=== PATIENT | male | born 1955 | race Caucasian/White ===

== ENCOUNTER 2019-05-11 21:46 | Inpatient (IN) | payer OTHER ==
[~2019-05-11] VITALS: Ht 177.8 cm; Wt 77.2 kg
--- NOTE | ~2019-05-11 | EKG ---
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
[2019-05-11 21:57] VITALS: BP 109/86
[2019-05-11 22:38] LABS: BASOPHILS 1.3 % (0.0-2.0); EOSINOPHILS 3.3 % (0.0-3.0); HEMATOCRIT 47.8 % (42.0-52.0); HEMOGLOBIN 16.3 gm/dL (14.0-18.0); LYMPHOCYTES 38.9 % (24.0-44.0); MCHC 34.1 g/dL (28.0-37.0); MCV 99.6 fL (80.0-100.0); MONOCYTES 6.8 % (1.0-8.0); PLATELET COUNT 254 thou/uL (150-400); POLYS 49.7 % (36.0-66.0); RDW 13.6 % (10.5-14.5); WBC 6.1 thou/uL (4.0-11.0)
[2019-05-11 22:49] LABS: ANION GAP 13 mmol/L (7-16); BUN 18 mg/dL (7-18); CALCIUM 8.9 mg/dL (8.5-10.1); CHLORIDE 100 mmol/L (98-107); CO2 24 mmol/L (21-32); CREATININE 0.9 mg/dL (0.7-1.3); GLUCOSE 97 mg/dL (74-106); POTASSIUM 3.3 mmol/L (3.5-5.1); SODIUM 137 mmol/L (136-145)
[2019-05-11 23:00] LABS: ALBUMIN 3.4 g/dL (3.4-5.0); SALICYLATE 5.5 mg/dL (2.8-20.0); SGOT 24 U/L (15-37); SGPT 19 U/L (30-65); TOTAL BILIRUBIN 0.2 mg/dL (<0.1-1.0); TOTAL PROTEIN 7.2 g/dL (6.4-8.2); TROPONIN-I <0.06 ng/mL (<0.06)
[2019-05-11 23:50] LABS: URINE BILIRUBIN NEGATIVE (Negative); URINE BLOOD TRACE (Negative); URINE CLARITY CLEAR; URINE COLOR YELLOW; URINE GLUCOSE-RANDOM* NEGATIVE (Negative); URINE KETONES NEGATIVE (Negative); URINE LEUKOCYTES-REFLEX NEGATIVE (Negative); URINE NITRITE-REFLEX NEGATIVE (Negative); URINE PROTEIN (DIPSTICK) NEGATIVE (Negative); URINE SPECIFIC GRAVITY 1.015 (1.005-1.035); URINE UROBILINOGEN 0.2 E.U./dl (0.2-1.0)
[2019-05-11 23:59] LABS: AMP/METHAMP Negative (Negative); BARBITURATES Negative (Negative); BENZODIAZEPINES Negative (Negative); COCAINE Negative (Negative); METHADONE Negative (Negative); OPIATES Negative (Negative); PCP Negative (Negative)
[2019-05-12] VITALS (24 sets, daily range): BP systolic 96–126; BP diastolic 63–83
--- NOTE | 2019-05-12 01:30 | NUR ---
Pt arrived ICU around 0100. He is being admit for Traumatic Subarrachnoid Hemorrhage ,Alcohol intoxication and Depression. He is AAOx4, GCS 15. He is wearing soft collar , C-spine injury precaution inplace per . Hx obtained, admition assessment completed. Continue working toward goals.
[2019-05-12 05:42] LABS: CREATININE 0.8 mg/dL (0.7-1.3); POTASSIUM 3.8 mmol/L (3.5-5.1)
[2019-05-12 05:58] LABS: CHOLESTEROL 211 mg/dL (<200); HDL CHOLESTEROL 44 mg/dL (>40); LDL CHOLESTEROL 108 mg/dL (<100); MAGNESIUM 1.7 mg/dL (1.8-2.4); PHOSPHORUS 3.6 mg/dL (2.5-4.9); TC:HDL 4.8 Ratio (Not establshd); TRIGLYCERIDE 296 mg/dL (<150); VLDL 59 mg/dL (<40)
[2019-05-12 05:59] LABS: SERUM ASSESSMENT Clear
--- NOTE | 2019-05-12 07:00 | NUR ---
No changes of neurological this am.
--- NOTE | 2019-05-12 12:13 | EKG ---
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
--- NOTE | 2019-05-12 13:28 | NUR ---
Dr. Penn called RN and stated she is not seeing consults this weekend but can see any new consults beginning Tuesday. Nurse verbalized understanding. Will continue to monitor.
--- NOTE | 2019-05-12 13:50 | NUR ---
Discharge instructions gone over with PT at bedside. He verbalized understanding. Education packet was given to PT including information on smoking cessation. PT was made aware of follow up appointments with his primary care provider and Dr. Penn. PT's roommate is going to be transport home. PT will leave unit via wheelchair. Nurse will continue to monitor.
--- NOTE | 2019-05-12 14:17 | NUR ---
PT was taken out to main entrance with RN via wheelchair. Roommate was present for transport home. PT dc'd at 1410.
[2019-05-13 02:06] LABS: GLYCOHEMOGLOBIN (HGB A1C) 5.6 % (4.8-5.6)
== END 2019-05-12 14:10 | disposition home or self-care (01) | DRG 84 ==
LOC: ER 21:46 → EROBS 05-12 00:36 → ICU 05-12 01:10
PROVIDERS: Nurse Practitioner Family; Physician Assistant; ADMIT Hospitalist
DX: S06.6X9A Traumatic subarachnoid hemorrhage with loss of consciousness of unspecified duration, initial encounter (principal); W18.39XA Other fall on same level, initial encounter; J44.9 Chronic obstructive pulmonary disease, unspecified; M19.90 Unspecified osteoarthritis, unspecified site; I25.10 Atherosclerotic heart disease of native coronary artery without angina pectoris; E78.5 Hyperlipidemia, unspecified; F17.210 Nicotine dependence, cigarettes, uncomplicated; M19.042 Primary osteoarthritis, left hand; M19.041 Primary osteoarthritis, right hand; M17.11 Unilateral primary osteoarthritis, right knee; F10.129 Alcohol abuse with intoxication, unspecified; Z71.6 Tobacco abuse counseling; Y93.89 Activity, other specified; Y92.89 Other specified places as the place of occurrence of the external cause; Y99.8 Other external cause status; Z85.038 Personal history of other malignant neoplasm of large intestine; I25.2 Old myocardial infarction; Z83.3 Family history of diabetes mellitus
CPT/HCPCS: 10078